=== PATIENT | male | born 1960 | race Hispanic/Latino ===

== ENCOUNTER 2022-06-17 15:48 | Inpatient (IN) | payer OTHER ==
[~2022-06-17] VITALS: Ht 165.1 cm; Wt 50.8 kg
[2022-06-17] MEDS ORDERED: CLINDAMYCIN IVPB 600MG/50ML 50 ML IV ONE (16:00)
[2022-06-17 16:22] LABS: BASOPHILS % (AUTO) 0.4 % (0.0-5.0); EOSINOPHILS % (AUTO) 0.1 % (0.0-8.0); HEMATOCRIT 26.1 % (42-54); LYMPHOCYTES % (AUTO) 5.9 % (21.0-51.0); MEAN CORPUSCULAR HEMOGLOBIN 30.3 pg (27.0-33.0); MEAN CORPUSCULAR HGB CONC 34.5 g/dL (32.0-36.0); MEAN CORPUSCULAR VOLUME 87.9 fL (79-99); MONOCYTES % (AUTO) 8.5 % (3.0-13.0); NEUTROPHILS % (AUTO) 84.4 % (40.0-77.0); PLATELET COUNT (AUTO) 495 K/uL (130-400); RED BLOOD CELL COUNT(AUTO) 2.97 MIL/uL (4.50-6.20); RED CELL DISTRIBUTION WIDTH 13.3 % (11.0-15.5); WHITE BLOOD COUNT (AUTO) 17.9 K/uL (4.8-10.8)
[2022-06-17 16:32] LABS: CREATININE 0.7 mg/dL (0.5-1.5); POTASSIUM 3.1 mmol/L (3.5-5.1)
[2022-06-17 16:36] LABS: ALBUMIN 1.9 g/dL (3.5-5.0); TOTAL PROTEIN, SERUM 7.7 g/dL (6.0-8.3)
[2022-06-17] MEDS ORDERED: POTASSIUM CHLORIDE 10% ELIXIR 20 MEQ/15 ML UDCUP PO PRN (19:30)
[2022-06-17] MEDS ORDERED: MORPHINE 4 MG SYG IV PRN (19:30)
[2022-06-17] MEDS ORDERED: POTASSIUM CHLORIDE 20MEQ/100ML 100 ML IV PRN (19:30)
[2022-06-17] MEDS ORDERED: LACTATED RINGERS 1000ML 1,845 ML IV ONE (19:30)
[2022-06-17] MEDS ORDERED: LIDOCAINE HCL-MPF 1% 2ML VIAL IV PRN (19:30)
[2022-06-17] MEDS ORDERED: MORPHINE 2 MG SYG IV PRN (19:30)
[2022-06-17] MEDS: FAMOTIDINE 20MG VIAL IV SCH (19:49)
[2022-06-17] MEDS: KCL 20 MEQ ERTAB PO PRN ×2 (20:01→22:06)
[2022-06-17] MEDS: ACETAMINOPHEN 325 MG TAB PO PRN (20:01)
[2022-06-18] MEDS: KCL 20 MEQ ERTAB PO PRN (02:27)
[2022-06-18 02:58] VITALS: BP 120/63
[2022-06-18] MEDS ORDERED: VANCOMYCIN PROTOCOL PER PHARMACY IV SCH ×2 (03:00→16:30)
[2022-06-18] MEDS: ZOSYN 3.375GM +NS 50ML IV SCH ×3 (05:10→22:50)
[2022-06-18 05:30] LABS: BASOPHILS % (AUTO) 0.3 % (0.0-5.0); EOSINOPHILS % (AUTO) 0.1 % (0.0-8.0); LYMPHOCYTES % (AUTO) 6.8 % (21.0-51.0); MEAN CORPUSCULAR HEMOGLOBIN 30.3 pg (27.0-33.0); MEAN CORPUSCULAR HGB CONC 34.2 g/dL (32.0-36.0); MEAN CORPUSCULAR VOLUME 88.6 fL (79-99); MONOCYTES % (AUTO) 6.9 % (3.0-13.0); NEUTROPHILS % (AUTO) 85.2 % (40.0-77.0); PLATELET COUNT (AUTO) 450 K/uL (130-400); RED BLOOD CELL COUNT(AUTO) 2.71 MIL/uL (4.50-6.20); RED CELL DISTRIBUTION WIDTH 13.6 % (11.0-15.5); WHITE BLOOD COUNT (AUTO) 21.1 K/uL (4.8-10.8)
[2022-06-18 05:38] LABS: INR 1.2 (0.85-1.15); PROTHROMBIN TIME 12.9 SEC (9.6-11.6)
[2022-06-18 05:40] LABS: PARTIAL THROMBOPLASTIN TIME 34.3 SEC (26.3-35.5)
[2022-06-18 05:53] LABS: CREATININE 0.6 mg/dL (0.5-1.5); MAGNESIUM 1.8 mg/dL (1.80-2.40); PHOSPHORUS 2.8 mg/dL (2.5-4.9); POTASSIUM 4.3 mmol/L (3.5-5.1)
[2022-06-18 07:42] VITALS: BP 105/56
[2022-06-18] MEDS: FAMOTIDINE 20MG VIAL IV SCH ×2 (11:27→21:13)
[2022-06-18] MEDS: ENOXAPARIN SODIUM 40 MG/0.4 ML SYRINGE SQ SCH (11:32)
[2022-06-18 11:45] VITALS: BP 93/53
[2022-06-18] MEDS ORDERED: THIAMINE HCL 100 MG/ML 2ML VIAL IVP SCH (14:30)
[2022-06-18] MEDS ORDERED: FOLIC ACID 1 MG TABLET PO SCH (14:30)
[2022-06-18] MEDS: ACETAMINOPHEN 325 MG TAB PO PRN (14:47)
[2022-06-18 16:10] VITALS: BP 92/52
[2022-06-18] MEDS: 0.9%NACL 1000ML 1,000 ML IV SCH (17:00)
[2022-06-18 20:48] VITALS: BP 96/58
[2022-06-18] MEDS ORDERED: 0.9% NACL 250ML 250 ML ONE (21:07)
[2022-06-18] MEDS: VANCOMYCIN 1G/250ML KIT 250 ML IV SCH (21:12)
[2022-06-18 23:31] VITALS: BP 105/50
[2022-06-19 04:37] VITALS: BP 98/59
[2022-06-19] MEDS: ZOSYN 3.375GM +NS 50ML IV SCH ×4 (05:22→23:44)
[2022-06-19 05:23] LABS: BASOPHILS % (AUTO) 0.3 % (0.0-5.0); EOSINOPHILS % (AUTO) 0.4 % (0.0-8.0); HEMATOCRIT 21.9 % (42-54); LYMPHOCYTES % (AUTO) 7.9 % (21.0-51.0); MEAN CORPUSCULAR HEMOGLOBIN 30.1 pg (27.0-33.0); MEAN CORPUSCULAR HGB CONC 34.2 g/dL (32.0-36.0); NEUTROPHILS % (AUTO) 83.6 % (40.0-77.0); PLATELET COUNT (AUTO) 432 K/uL (130-400); RED BLOOD CELL COUNT(AUTO) 2.49 MIL/uL (4.50-6.20); RED CELL DISTRIBUTION WIDTH 13.7 % (11.0-15.5); WHITE BLOOD COUNT (AUTO) 19.6 K/uL (4.8-10.8)
[2022-06-19 05:31] LABS: CREATININE 0.7 mg/dL (0.5-1.5); POTASSIUM 3.7 mmol/L (3.5-5.1)
[2022-06-19 08:05] VITALS: BP 106/53
[2022-06-19] MEDS ORDERED: 0.9% NACL 250ML 250 ML ONE (10:01)
[2022-06-19] MEDS: KCL 20 MEQ ERTAB PO PRN ×2 (10:15→13:09)
[2022-06-19] MEDS: VANCOMYCIN 1G/250ML KIT 250 ML IV SCH ×2 (10:15→22:10)
[2022-06-19] MEDS: ENOXAPARIN SODIUM 40 MG/0.4 ML SYRINGE SQ SCH (10:17)
[2022-06-19] MEDS: FAMOTIDINE 20MG VIAL IV SCH ×2 (10:17→22:10)
[2022-06-19 12:28] VITALS: BP 99/47
[2022-06-19] MEDS: 0.9%NACL 1000ML 1,000 ML IV SCH (13:10)
[2022-06-19 17:25] VITALS: BP 118/57
[2022-06-19 20:00] VITALS: BP 114/58
[2022-06-20] VITALS: BP 111/54
[2022-06-20 03:54] VITALS: BP 112/61
[2022-06-20] MEDS: ZOSYN 3.375GM +NS 50ML IV SCH ×3 (04:56→22:26)
[2022-06-20 08:00] VITALS: BP 113/52
[2022-06-20 08:26] LABS: BASOPHILS % (AUTO) 0.5 % (0.0-5.0); EOSINOPHILS % (AUTO) 0.7 % (0.0-8.0); LYMPHOCYTES % (AUTO) 7.2 % (21.0-51.0); MEAN CORPUSCULAR HEMOGLOBIN 30.1 pg (27.0-33.0); MEAN CORPUSCULAR HGB CONC 33.2 g/dL (32.0-36.0); MEAN CORPUSCULAR VOLUME 90.8 fL (79-99); MONOCYTES % (AUTO) 7.6 % (3.0-13.0); NEUTROPHILS % (AUTO) 83.2 % (40.0-77.0); PLATELET COUNT (AUTO) 424 K/uL (130-400); RED BLOOD CELL COUNT(AUTO) 2.29 MIL/uL (4.50-6.20); RED CELL DISTRIBUTION WIDTH 13.8 % (11.0-15.5); WHITE BLOOD COUNT (AUTO) 17.2 K/uL (4.8-10.8)
[2022-06-20 08:31] LABS: HEMATOCRIT 20.8 % (42-54)
[2022-06-20 08:42] LABS: CREATININE 0.8 mg/dL (0.5-1.5); POTASSIUM 3.5 mmol/L (3.5-5.1)
[2022-06-20] MEDS: ENOXAPARIN SODIUM 40 MG/0.4 ML SYRINGE SQ SCH (09:00)
[2022-06-20] MEDS: VANCOMYCIN 1G/250ML KIT 250 ML IV SCH ×2 (09:52→22:26)
[2022-06-20] MEDS: FAMOTIDINE 20MG VIAL IV SCH ×2 (09:57→22:26)
[2022-06-20 10:04] LABS: APPEARANCE,URINE CLEAR (CLEAR); BILIRUBIN,URINE NEGATIVE (NEGATIVE); COLOR,URINE LIGHT-YELLOW (YELLOW); GLUCOSE, URINE (UA) NEGATIVE (NEGATIVE); KETONES,URINE NEGATIVE (NEGATIVE); LEUKOCYTE ESTERASE ,URINE NEGATIVE Leu/uL (NEGATIVE); NITRATE,URINE NEGATIVE (NEGATIVE); OCCULT BLOOD,URINE NEGATIVE (NEGATIVE); PH,URINE 6.5 (5.0-8.0); PROTEIN,URINE 10 mg/dL (NEGATIVE); UROBILINOGEN,URINE 0.2 mg/dL (0.2-1.0)
[2022-06-20 10:10] LABS: RBC,URINE 0-1 /HPF (0-1); WBC,URINE 0-1 /HPF (0-1)
[2022-06-20 10:11] LABS: AMPHET/METH SCREEN,URINE NEGATIVE (NEGATIVE); BARBITURATE SCREEN, URINE NEGATIVE (NEGATIVE); BENZODIAZEPINES SCREEN,URINE NEGATIVE (NEGATIVE); CANNABINOID SCREEN,URINE NEGATIVE (NEGATIVE); COCAINE SCREEN,URINE NEGATIVE (NEGATIVE); OPIATE SCREEN,URINE NEGATIVE (NEGATIVE); PHENCYCLIDINE SCREEN,URINE NEGATIVE (NEGATIVE)
[2022-06-20 12:00] VITALS: BP 109/59
[2022-06-20 16:00] VITALS: BP 124/60
[2022-06-20 19:00] VITALS: BP 114/53
[2022-06-20] MEDS: 0.9%NACL 1000ML 1,000 ML IV SCH (22:26)
[2022-06-21] VITALS: BP 122/54
[2022-06-21] MEDS: KCL 20 MEQ ERTAB PO PRN ×4 (00:36→16:18)
[2022-06-21 04:00] VITALS: BP 120/60
[2022-06-21] MEDS: ZOSYN 3.375GM +NS 50ML IV SCH ×3 (04:35→21:54)
[2022-06-21 06:24] LABS: HEMATOCRIT 22.5 % (42-54); MEAN CORPUSCULAR HEMOGLOBIN 30.2 pg (27.0-33.0); MEAN CORPUSCULAR HGB CONC 33.3 g/dL (32.0-36.0); MEAN CORPUSCULAR VOLUME 90.7 fL (79-99); RED BLOOD CELL COUNT(AUTO) 2.48 MIL/uL (4.50-6.20); RED CELL DISTRIBUTION WIDTH 13.8 % (11.0-15.5); WHITE BLOOD COUNT (AUTO) 15.8 K/uL (4.8-10.8)
[2022-06-21 06:37] LABS: ALBUMIN 1.4 g/dL (3.5-5.0); CREATININE 0.8 mg/dL (0.5-1.5); POTASSIUM 3.5 mmol/L (3.5-5.1); TOTAL PROTEIN, SERUM 6.1 g/dL (6.0-8.3)
[2022-06-21 07:30] VITALS: BP 143/63
[2022-06-21] MEDS: FAMOTIDINE 20MG VIAL IV SCH ×2 (10:20→21:51)
[2022-06-21] MEDS: ENOXAPARIN SODIUM 40 MG/0.4 ML SYRINGE SQ SCH (10:20)
[2022-06-21] MEDS: VANCOMYCIN 1G/250ML KIT 250 ML IV SCH ×2 (10:20→21:52)
[2022-06-21 11:15] VITALS: BP 117/60
[2022-06-21] MEDS: 0.9%NACL 1000ML 1,000 ML IV SCH (12:52)
[2022-06-21 15:10] VITALS: BP 118/57
[2022-06-21 19:00] VITALS: BP 122/59
[2022-06-22] VITALS: BP 133/63
[2022-06-22 04:00] VITALS: BP 128/61
[2022-06-22 04:42] LABS: MEAN CORPUSCULAR HGB CONC 33.3 g/dL (32.0-36.0); MEAN CORPUSCULAR VOLUME 90.1 fL (79-99); RED BLOOD CELL COUNT(AUTO) 2.13 MIL/uL (4.50-6.20); RED CELL DISTRIBUTION WIDTH 13.8 % (11.0-15.5); WHITE BLOOD COUNT (AUTO) 17.2 K/uL (4.8-10.8)
[2022-06-22 04:54] LABS: CREATININE 0.9 mg/dL (0.5-1.5); POTASSIUM 3.7 mmol/L (3.5-5.1)
[2022-06-22 04:55] LABS: HEMATOCRIT 19.2 % (42-54)
[2022-06-22] MEDS: ZOSYN 3.375GM +NS 50ML IV SCH ×3 (06:08→20:16)
[2022-06-22 07:35] VITALS: BP 119/58
[2022-06-22 07:35] LABS: HEMATOCRIT 21.9 % (42-54)
[2022-06-22] MEDS: VANCOMYCIN 1G/250ML KIT 250 ML IV SCH (09:00)
[2022-06-22] MEDS: FAMOTIDINE 20MG VIAL IV SCH ×2 (09:44→20:15)
[2022-06-22] MEDS: ENOXAPARIN SODIUM 40 MG/0.4 ML SYRINGE SQ SCH (09:44)
[2022-06-22 09:48] LABS: RAPID PLASMA REAGIN NONREACTIVE (NONREACTIVE)
[2022-06-22 11:10] VITALS: BP 108/54
[2022-06-22 12:26] LABS: % IRON SATURATION 13.5 % (30-44)
[2022-06-22 15:30] VITALS: BP 124/60
[2022-06-22] MEDS: 0.9%NACL 1000ML 1,000 ML IV SCH (19:12)
[2022-06-22 20:00] VITALS: BP 117/60
[2022-06-23] VITALS: BP 121/58
[2022-06-23 00:22] LABS: HEPATITIS B SURFACE ANTIGEN Non-Reactive (Nonreactive)
[2022-06-23 00:23] LABS: HEPATITIS A IGM ANTIBODY Non-Reactive (Nonreactive); HEPATITIS B CORE IGM ANTIBODY Non-Reactive (Negative); HEPATITIS C ANTIBODY Non-Reactive (Nonreactive)
[2022-06-23 04:00] VITALS: BP 107/58
[2022-06-23] MEDS: ZOSYN 3.375GM +NS 50ML IV SCH ×3 (05:00→22:26)
[2022-06-23 06:34] LABS: MEAN CORPUSCULAR HEMOGLOBIN 30.1 pg (27.0-33.0); MEAN CORPUSCULAR HGB CONC 34.2 g/dL (32.0-36.0); MEAN CORPUSCULAR VOLUME 88.1 fL (79-99); RED BLOOD CELL COUNT(AUTO) 2.26 MIL/uL (4.50-6.20); RED CELL DISTRIBUTION WIDTH 14.2 % (11.0-15.5); WHITE BLOOD COUNT (AUTO) 13.9 K/uL (4.8-10.8)
[2022-06-23 06:45] LABS: HEMATOCRIT 19.9 % (42-54)
[2022-06-23 06:49] LABS: POTASSIUM 3.3 mmol/L (3.5-5.1)
[2022-06-23 08:00] VITALS: BP 120/62
[2022-06-23] MEDS: FAMOTIDINE 20MG VIAL IV SCH ×2 (09:21→22:26)
[2022-06-23] MEDS: 0.9%NACL 1000ML 1,000 ML IV SCH ×2 (09:24→09:31)
[2022-06-23 12:00] VITALS: BP 122/58
[2022-06-23] MEDS ORDERED: PHARMACY COMMUNICATION MISC SCH (14:30)
[2022-06-23] MEDS: LACTOBACILLUS RHAMNOSUS GG 1 EACH CAP.SPRINK PO SCH (14:53)
[2022-06-23] MEDS: IRON SUCROSE COMPLEX 100 MG/5 ML VIAL IVP SCH (14:53)
[2022-06-23 16:00] VITALS: BP 137/58
[2022-06-23] MEDS: ONDANSETRON 4MG INJ IV PRN (17:08)
[2022-06-23 20:00] VITALS: BP 123/60
[2022-06-23] MEDS: VANCOMYCIN 1G/250ML KIT 250 ML IV SCH (22:26)
[2022-06-24] VITALS (7 sets, daily range): BP systolic 110–132; BP diastolic 58–68
[2022-06-24] MEDS: ZOSYN 3.375GM +NS 50ML IV SCH ×2 (05:00→05:52)
[2022-06-24 05:35] LABS: ALBUMIN 1.6 g/dL (3.5-5.0); CREATININE 0.9 mg/dL (0.5-1.5); POTASSIUM 3.2 mmol/L (3.5-5.1); TOTAL PROTEIN, SERUM 6.6 g/dL (6.0-8.3)
[2022-06-24 06:16] LABS: MEAN CORPUSCULAR HEMOGLOBIN 30.1 pg (27.0-33.0); MEAN CORPUSCULAR HGB CONC 33.6 g/dL (32.0-36.0); MEAN CORPUSCULAR VOLUME 89.4 fL (79-99); RED BLOOD CELL COUNT(AUTO) 2.46 MIL/uL (4.50-6.20); RED CELL DISTRIBUTION WIDTH 14.3 % (11.0-15.5); WHITE BLOOD COUNT (AUTO) 16.8 K/uL (4.8-10.8)
[2022-06-24] MEDS: KCL 20 MEQ ERTAB PO PRN ×4 (06:52→13:13)
[2022-06-24] MEDS: VANCOMYCIN 1G/250ML KIT 250 ML IV SCH (08:54)
[2022-06-24] MEDS: LACTOBACILLUS RHAMNOSUS GG 1 EACH CAP.SPRINK PO SCH (08:54)
[2022-06-24] MEDS: IRON SUCROSE COMPLEX 100 MG/5 ML VIAL IVP SCH (08:55)
[2022-06-24] MEDS: FAMOTIDINE 20MG VIAL IV SCH ×2 (08:55→20:13)
[2022-06-24] MEDS ORDERED: IRON SUCROSE COMPLEX 100 MG in 0.9%NACL 50ML 50 ML IV SCH (09:00)
[2022-06-24] MEDS: CEFTRIAXONE 2GM VIAL IVP SCH (11:09)
[2022-06-24] MEDS: ACETAMINOPHEN 325 MG TAB PO PRN (20:35)
[2022-06-25 04:35] VITALS: BP 126/65
[2022-06-25 05:33] LABS: MEAN CORPUSCULAR HEMOGLOBIN 30.4 pg (27.0-33.0); MEAN CORPUSCULAR HGB CONC 33.8 g/dL (32.0-36.0); MEAN CORPUSCULAR VOLUME 89.7 fL (79-99); RED BLOOD CELL COUNT(AUTO) 2.24 MIL/uL (4.50-6.20); RED CELL DISTRIBUTION WIDTH 14.4 % (11.0-15.5)
[2022-06-25 05:45] LABS: HEMATOCRIT 20.1 % (42-54)
[2022-06-25 08:00] VITALS: BP 129/66
[2022-06-25] MEDS: CEFTRIAXONE 2GM VIAL IVP SCH (09:35)
[2022-06-25] MEDS: LACTOBACILLUS RHAMNOSUS GG 1 EACH CAP.SPRINK PO SCH (09:35)
[2022-06-25] MEDS: IRON SUCROSE COMPLEX 100 MG/5 ML VIAL IVP SCH (09:35)
[2022-06-25] MEDS: FAMOTIDINE 20MG VIAL IV SCH ×2 (09:36→20:34)
[2022-06-25 12:00] VITALS: BP 139/61
[2022-06-25 16:00] VITALS: BP 145/72
[2022-06-25 21:24] VITALS: BP 132/66
[2022-06-25] MEDS: ACETAMINOPHEN 325 MG TAB PO PRN (23:41)
[2022-06-26] VITALS (28 sets, daily range): BP systolic 101–158; BP diastolic 54–90
[2022-06-26 03:51] LABS: BASOPHILS % (AUTO) 0.8 % (0.0-5.0); EOSINOPHILS % (AUTO) 2.2 % (0.0-8.0); HEMATOCRIT 24.1 % (42-54); LYMPHOCYTES % (AUTO) 14.5 % (21.0-51.0); MEAN CORPUSCULAR HEMOGLOBIN 31.4 pg (27.0-33.0); MEAN CORPUSCULAR HGB CONC 34.4 g/dL (32.0-36.0); MEAN CORPUSCULAR VOLUME 91.3 fL (79-99); MONOCYTES % (AUTO) 7.4 % (3.0-13.0); NEUTROPHILS % (AUTO) 74.4 % (40.0-77.0); PLATELET COUNT (AUTO) 408 K/uL (130-400); RED BLOOD CELL COUNT(AUTO) 2.64 MIL/uL (4.50-6.20); RED CELL DISTRIBUTION WIDTH 13.6 % (11.0-15.5); WHITE BLOOD COUNT (AUTO) 12.8 K/uL (4.8-10.8)
[2022-06-26 04:00] LABS: POTASSIUM 3.2 mmol/L (3.5-5.1)
[2022-06-26] MEDS: LACTOBACILLUS RHAMNOSUS GG 1 EACH CAP.SPRINK PO SCH (09:00)
[2022-06-26] MEDS ORDERED: LACTATED RINGERS 1000ML 1,000 ML IV ONE (09:19)
[2022-06-26] MEDS: IRON SUCROSE COMPLEX 100 MG/5 ML VIAL IVP SCH (09:34)
[2022-06-26] MEDS: CEFTRIAXONE 2GM VIAL IVP SCH (09:34)
[2022-06-26] MEDS: FAMOTIDINE 20MG VIAL IV SCH ×2 (09:34→21:30)
[2022-06-26] MEDS ORDERED: PROPOFOL 10 MG/ML 20ML VIAL IV ONE ×2 (11:09→11:32)
[2022-06-26] MEDS ORDERED: LIDOCAINE HCL MPF 1% 5ML VIAL ONE (11:09)
[2022-06-26] MEDS ORDERED: FENTANYL CITRATE PF 50 MCG/1 ML 2ML VIAL ONE ×2 (11:09→11:49)
[2022-06-26] MEDS ORDERED: ONDANSETRON 4MG INJ ONE (11:10)
[2022-06-26] MEDS ORDERED: MEPERIDINE-PF 25 MG/ML SYG ONE (12:46)
[2022-06-26] MEDS: ONDANSETRON 4MG INJ IV PRN (12:51)
[2022-06-26] MEDS: KCL 20 MEQ ERTAB PO PRN (21:35)
[2022-06-27] VITALS (7 sets, daily range): BP systolic 122–137; BP diastolic 66–72
[2022-06-27] MEDS: KCL 20 MEQ ERTAB PO PRN (01:09)
[2022-06-27] MEDS: ACETAMINOPHEN 325 MG TAB PO PRN ×2 (02:49→20:06)
[2022-06-27 04:24] LABS: HEMATOCRIT 23.3 % (42-54); MEAN CORPUSCULAR HEMOGLOBIN 30.9 pg (27.0-33.0); MEAN CORPUSCULAR HGB CONC 34.3 g/dL (32.0-36.0); RED BLOOD CELL COUNT(AUTO) 2.59 MIL/uL (4.50-6.20); RED CELL DISTRIBUTION WIDTH 14.3 % (11.0-15.5); WHITE BLOOD COUNT (AUTO) 16.3 K/uL (4.8-10.8)
[2022-06-27 04:33] LABS: CREATININE 1.2 mg/dL (0.5-1.5); POTASSIUM 3.9 mmol/L (3.5-5.1)
[2022-06-27] MEDS: IRON SUCROSE COMPLEX 100 MG/5 ML VIAL IVP SCH (09:03)
[2022-06-27] MEDS: CEFTRIAXONE 2GM VIAL IVP SCH (09:03)
[2022-06-27] MEDS: FAMOTIDINE 20MG VIAL IV SCH ×2 (09:03→20:05)
[2022-06-27] MEDS: LACTOBACILLUS RHAMNOSUS GG 1 EACH CAP.SPRINK PO SCH (09:04)
[2022-06-28 04:07] VITALS: BP 123/66
[2022-06-28 05:24] LABS: HEMATOCRIT 23.7 % (42-54); MEAN CORPUSCULAR HEMOGLOBIN 30.8 pg (27.0-33.0); MEAN CORPUSCULAR HGB CONC 32.9 g/dL (32.0-36.0); MEAN CORPUSCULAR VOLUME 93.7 fL (79-99); RED BLOOD CELL COUNT(AUTO) 2.53 MIL/uL (4.50-6.20); RED CELL DISTRIBUTION WIDTH 14.6 % (11.0-15.5); WHITE BLOOD COUNT (AUTO) 15.3 K/uL (4.8-10.8)
[2022-06-28 05:35] LABS: POTASSIUM 3.4 mmol/L (3.5-5.1)
[2022-06-28] MEDS: KCL 20 MEQ ERTAB PO PRN (05:39)
[2022-06-28] MEDS: ACETAMINOPHEN 325 MG TAB PO PRN (05:40)
[2022-06-28 08:00] VITALS: BP 130/73
[2022-06-28] MEDS: CEFTRIAXONE 2GM VIAL IVP SCH (08:41)
[2022-06-28] MEDS: FAMOTIDINE 20MG VIAL IV SCH (08:41)
[2022-06-28] MEDS: IRON SUCROSE COMPLEX 100 MG/5 ML VIAL IVP SCH (08:41)
[2022-06-28] MEDS: LACTOBACILLUS RHAMNOSUS GG 1 EACH CAP.SPRINK PO SCH (08:41)
[2022-06-28 12:00] VITALS: BP 147/74
== END 2022-06-28 15:40 | disposition home or self-care (01) | DRG 871 ==
LOC: EDH 15:48 → EEVIPCON 15:48 → EDHIP 15:49 → 4CH 06-18 01:48
PROVIDERS: ADMIT Hospitalist; ATTEND Hospitalist
PROC: 30233N1 Transfusion of Nonautologous Red Blood Cells into Peripheral Vein, Percutaneous Approach (ICD-10-PCS; 2022-06-25)
PROC: 0X990ZZ Drainage of Left Upper Arm, Open Approach (ICD-10-PCS; principal; 2022-06-26 11:14)
DX: A41.9 Sepsis, unspecified organism (principal); E43 Unspecified severe protein-calorie malnutrition; M60.009 Infective myositis, unspecified site; E87.1 Hypo-osmolality and hyponatremia; Z20.822 Contact with and (suspected) exposure to COVID-19; L02.414 Cutaneous abscess of left upper limb; L02.415 Cutaneous abscess of right lower limb; L02.416 Cutaneous abscess of left lower limb; L03.116 Cellulitis of left lower limb; Z68.1 Body mass index [BMI] 19.9 or less, adult; E87.6 Hypokalemia; D64.9 Anemia, unspecified; F17.210 Nicotine dependence, cigarettes, uncomplicated; Z51.5 Encounter for palliative care
CPT/HCPCS: 36415; 36430; 76882; 80048; 80053; 80074; 80202; 80305; 81001; 82550; 82728; 83540; 83550; 83605; 83735; 84100; 84145; 84484; 85014; 85018; 85025; 85027; 85610; 85730; 86592; 86701; 86850; 86900; 86901; 86923; 87040; 87070; 87076; 87077; 87088; 87186; 87390; 87635; 93306; 93356; 97039; G0378; J0696; J1650; J1756; J2175; J2405; J2543; J2704; J3010; J3370; J3411; J3480; J3490; J7030; J7050; J7120; P9016

== ENCOUNTER 2022-07-12 11:25 | Emergency (ER) | payer OTHER ==
[2022-07-12 12:46] VITALS: BP 123/78
== END 2022-07-12 12:45 | disposition home or self-care (01) ==
LOC: EDH 11:25
DX: L02.414 Cutaneous abscess of left upper limb (principal); Z48.01 Encounter for change or removal of surgical wound dressing
CPT/HCPCS: 99282

== ENCOUNTER → 2022-07-29 | Emergency (ER) | payer OTHER ==
[~2022-07-29] VITALS: Ht 165.1 cm; Wt 50.8 kg
[2022-07-29 12:43] VITALS: BP 147/81
== END | disposition left against medical advice (07) ==
LOC: EDH 12:37
DX: Z48.01 Encounter for change or removal of surgical wound dressing (principal); Z53.21 Procedure and treatment not carried out due to patient leaving prior to being seen by health care provider